=== PATIENT | male | born 1980 | race Caucasian/White ===

== ENCOUNTER 2020-11-10 12:52 | Emergency (ER) | payer OTHER ==
[2020-11-10] MEDS ORDERED: Sodium Chloride 0.9% 1,000 ML IV ONE (14:00)
[2020-11-10] MEDS ORDERED: Ketorolac 30 MG/ML SDV IVPUSH ONE (14:00)
[2020-11-10] MEDS ORDERED: Morphine 4 MG/ML Syringe IVPUSH ONE (14:00)
[2020-11-10] MEDS ORDERED: Ondansetron 4 MG/2 ML SDV IVPUSH ONE (14:00)
--- NOTE | 2020-11-10 14:12 | PCM.EKG ---
#1 Interpretation EKG Date: 11/10/20 Time: 14:07 Rhythm: NSR Rate (Beats/Min): 58 ST-T: Normal
--- NOTE | 2020-11-10 14:24 | EDM.PDOC ---
ED HPI GENERAL MEDICAL PROBLEM - General Chief Complaint: Abdominal Pain Stated Complaint: ABDOMINAL PAIN Time Seen by Provider: 11/10/20 12:57 Source of Information: Reports: Patient History Limitations: Reports: No Limitations - History of Present Illness INITIAL COMMENTS - FREE TEXT/NARRATIVE: HISTORY AND PHYSICAL: History of present illness: Patient is a 40-year-old male who presents emergency room today for right-sided abdominal pain that started this morning and worsened throughout today. Patient states he does have a history of cholecystectomy in April 2020 and states that his gallbladder was so infected they had to go to an open procedure to get his gallbladder removed secondary to infection. Patient states he had this done in [facility]. Patient states that he has not had any complications of the surgery since then. Patient states today he started developing right-sided abdominal pain and states that it feels similar to when he had his gallbladder removed but states that he knows that he does not have his gallbladder. Patient states that he feels "full of air "and is belching frequently which relieves the discomfort for a "split second "and then returns shortly after. Patient denies any other health history or any other associated symptoms. Patient denies fever, chills, chest pain, shortness of breath, or cough. Denies headache, neck stiff ness, change in vision, syncope, or near syncope. Denies nausea, vomiting, diarrhea, constipation, or dysuria. Has not noted any blood in urine or stool. Patient has been eating and drinking appropriately. Review of systems: As per history of present illness and below otherwise all systems reviewed and negative. Past medical history: As per history of present illness and as reviewed below otherwise noncontributory. Surgical history: As per history of present illness and as reviewed below otherwise noncontributory. Social history: See social history for further information Family history: As per history of present illness and as reviewed below otherwise noncontributory. Physical exam: General: Patient is alert, oriented, and in no acute distress. Patient laying on exam table, mildly uncomfortable holding the right side of abdomen. Vitals stable and reviewed by me. HEENT: Atraumatic, normocephalic, pupils equal and reactive bilaterally, negative for conjunctival pallor or scleral icterus, mucous membranes moist, TMs normal bilaterally, throat clear, neck supple, nontender, trachea midline. No drooling or trismus noted. No meningeal signs. No hot potato voice noted. Lungs: Clear to auscultation, breath sounds equal bilaterally, chest nontender. Heart: S1S2, regular rate and rhythm without overt murmur Abdomen: Scarring consistent with surgical history. Otherwise, soft, nondistended, moderate right sided abdominal tenderness with negative rebound and negative Coreas sign. Negative for masses or hepatosplenomegaly. Negative for costovertebral tenderness. Pelvis: Stable nontender. Genitourinary: Deferred. Rectal: Deferred. Skin: Intact, warm, dry. No lesions or rashes noted. Extremities: Atraumatic, negative for cords or calf pain. Neurovascular unremarkable. Neuro: Awake, alert, oriented. Cranial nerves II through XII unremarkable. Cerebellum unremarkable. Motor and sensory unremarkable throughout. Exam nonfocal. Notes: Patient is a 40-year-old male, with a history of prior cholecystectomy 6 months ago otherwise healthy, who presents emergency room today secondary to acute right-sided abdominal pain that started this morning and worsened throughout the day. Will obtain cardiac and abdominal lab work at this time and plan to obtain a an abdominal pelvic CT scan with contrast. See Dr. Link's dictation for specific EKG interpretation. However, sinus bradycardia with a rate of 58 bpm. No STEMI. CBC mild derangements unremarkable. CMP mild derangements unremarkable. Troponin negative. Lipase within normal limits. Urinalysis shows 40 ketones, otherwise clear for infection. Abdominal pelvic CT scan shows possible cholecystitis. Further evaluation of ultrasound recommended. GI tract appendix and remainder of exam are unremarkable. No other findings to explain pain. Mild prostate gland hypertrophy. I did call and speak to the radiologist, Dr. Manuel Solorzano, and thoroughly discussed patient's case. Discussed that patient had had his gallbladder removed in April 2020. He makes an addendum to his note stating there is fluid-filled structure in the gallbladder fossa which could represent a choledochal cyst or contained biloma. Acute inflammation or infection of this lesion is suspected. I did call and speak to the general surgeon on-call, Dr. Allen, and thoroughly discussed patient's case. He recommends discussing with patient's surgeon who performed his surgery. I asked patient who states that his surgery was performed by Dr. Wynn at [facility]. I then called and spoke to general surgeon, Dr. Wynn at [facility] who had performed patient surgery. He recommends placing patient on Augmentin for 7 days and have patient call his office in the morning to establish close follow- up time. Upon reevaluation of patient, he has improved symptoms with medications given today in the ED. Strict return precautions thoroughly discussed with patient. Discussed importance for follow-up with Dr. Wynn. Voices understanding and is agreeable to plan of care. Denies any further questions or concerns at this time. Diagnostics: EKG, CBC, CMP, UA, lipase, troponin, 1 view chest x-ray, abdominal pelvic CT sc an with contrast Therapeutics: Saline, Zofran, Toradol, morphine Prescription: Augmentin Impression: Upper quadrant abdominal pain Plan: 1. Take medication as prescribed. You can alternate ibuprofen and Tylenol as directed for pain and discomfort. 2. Follow-up with Dr. Salomon, general surgery as discussed. Return to the ED as needed and as discussed. Definitive disposition and diagnosis as appropriate pending reevaluation and review of above. Upper Abdomen Pain Score (Numeric/FACES): 6 - Related Data Allergies Allergy/AdvReac Type Severity Reaction Status Date / Time No Known Allergies Allergy Verified 11/10/20 13:37 Home Meds: Home Meds Amoxicillin/Potassium Clav [Augmentin 875-125 Tablet] 1 each PO BID 7 Days #14 tablet 11/10/20 [Rx] Past Medical History - Past Health History Medical/Surgical History: Denies Medical/Surgical History - Infectious Disease History Infectious Disease History: Reports: None - Past Surgical History GI Surgical History: Reports: Cholecystectomy Social & Family History - Tobacco Use Tobacco Use Status *Q: Never Tobacco User Second Hand Smoke Exposure: No - Caffeine Use Caffeine Use: Reports: None - Recreational Drug Use Recreational Drug Use: No ED ROS GENERAL - Review of Systems Review Of Systems: Comprehensive ROS is negative, except as noted in HPI. ED EXAM, GENERAL - Physical Exam Exam: See Below (See dictation) Course - Vital Signs Last Recorded V/S: Last Vital Signs Temp 98 F 11/10/20 13:37 Pulse 63 11/10/20 18:47 Resp 16 11/10/20 18:47 BP 136/83 11/10/20 18:47 Pulse Ox 97 11/10/20 18:47 - Orders/Labs/Meds Orders: Active Orders 24 hr Category Date Time Status EKG Documentation Completion [RC] STAT Care 11/10/20 14:01 Active Labs: Laboratory Tests 11/10/20 11/10/20 11/10/20 Range/Units 13:44 14:09 14:09 WBC 10.44 (4.0-11.0) K/uL RBC 5.03 (4.50-5.90) M/uL Hgb 14.5 (13.0-17.0) g/dL Hct 42.4 (38.0-50.0) % MCV 84.3 (80.0-98.0) fL MCH 28.8 (27.0-32.0) pg MCHC 34.2 (31.0-37.0) g/dL RDW Std Deviation 41.1 (28.0-62.0) fl RDW Coeff of Yolette 14 (11.0-15.0) % Plt Count 317 (150-400) K/uL MPV 10.20 (7.40-12.00) fL Neut % (Auto) 73.4 (48.0-80.0) % Lymph % (Auto) 19.9 (16.0-40.0) % [place] % (Auto) 6.1 (0.0-15.0) % Eos % (Auto) 0.4 (0.0-7.0) % Baso % (Auto) 0.2 (0.0-1.5) % Neut # (Auto) 7.7 H (1.4-5.7) K/uL Lymph # (Auto) 2.1 (0.6-2.4) K/uL [place] # (Auto) 0.6 (0.0-0.8) K/uL Eos # (Auto) 0.0 (0.0-0.7) K/uL Baso # (Auto) 0.0 (0.0-0.1) K/uL Nucleated RBC % 0.0 /100WBC Nucleated RBCs # 0 K/uL Sodium 136 (136-148) mmol/L Potassium 3.8 (3.5-5.1) mmol/L Chloride 101 (98-107) mmol/L Carbon Dioxide 27.5 (21.0-32.0) mmol/L BUN 15 (7.0-18.0) mg/dL Creatinine 0.9 (0.8-1.3) mg/dL Est Cr Clr Drug Dosing 124.31 mL/min Estimated GFR (MDRD) > 60.0 ml/min Glucose 142 H (74-106) mg/dL Calcium 9.3 (8.5-10.1) mg/dL Total Bilirubin 0.7 (0.2-1.0) mg/dL AST 16 (15-37) IU/L ALT 21 (14-63) IU/L Alkaline Phosphatase 67 (46-116) U/L Troponin I (0.000-0.056) ng/mL Total Protein 7.5 (6.4-8.2) g/dL Albumin 3.8 (3.4-5.0) g/dL Globulin 3.7 (2.6-4.0) g/dL Albumin/Globulin Ratio 1.0 (0.9-1.6) Lipase 124 (73-393) U/L Urine Color YELLOW Urine Appearance CLEAR Urine pH 8.5 H (5.0-8.0) Ur Specific [place] 1.020 (1.001-1.035) Urine Protein NEGATIVE (NEGATIVE) mg/dL Urine Glucose (UA) NEGATIVE (NEGATIVE) mg/dL Urine Ketones 40 H (NEGATIVE) mg/dL Urine Occult Blood NEGATIVE (NEGATIVE) Urine Nitrite NEGATIVE (NEGATIVE) Urine Bilirubin NEGATIVE (NEGATIVE) Urine Urobilinogen 1.0 (<2.0) EU/dL Ur Leukocyte Esterase NEGATIVE (NEGATIVE) 11/10/20 Range/Units 14:09 WBC (4.0-11.0) K/uL RBC (4.50-5.90) M/uL Hgb (13.0-17.0) g/dL Hct (38.0-50.0) % MCV (80.0-98.0) fL MCH (27.0-32.0) pg MCHC (31.0-37.0) g/dL RDW Std Deviation (28.0-62.0) fl RDW Coeff of Yolette (11.0-15.0) % Plt Count (150-400) K/uL MPV (7.40-12.00) fL Neut % (Auto) (48.0-80.0) % Lymph % (Auto) (16.0-40.0) % [place] % (Auto) (0.0-15.0) % Eos % (Auto) (0.0-7.0) % Baso % (Auto) (0.0-1.5) % Neut # (Auto) (1.4-5.7) K/uL Lymph # (Auto) (0.6-2.4) K/uL [place] # (Auto) (0.0-0.8) K/uL Eos # (Auto) (0.0-0.7) K/uL Baso # (Auto) (0.0-0.1) K/uL Nucleated RBC % /100WBC Nucleated RBCs # K/uL Sodium (136-148) mmol/L Potassium (3.5-5.1) mmol/L Chloride (98-107) mmol/L Carbon Dioxide (21.0-32.0) mmol/L BUN (7.0-18.0) mg/dL Creatinine (0.8-1.3) mg/dL Est Cr Clr Drug Dosing mL/min Estimated GFR (MDRD) ml/min Glucose (74-106) mg/dL Calcium (8.5-10.1) mg/dL Total Bilirubin (0.2-1.0) mg/dL AST (15-37) IU/L ALT (14-63) IU/L Alkaline Phosphatase (46-116) U/L Troponin I < 0.050 (0.000-0.056) ng/mL Total Protein (6.4-8.2) g/dL Albumin (3.4-5.0) g/dL Globulin (2.6-4.0) g/dL Albumin/Globulin Ratio (0.9-1.6) Lipase (73-393) U/L Urine Color Urine Appearance Urine pH (5.0-8.0) Ur Specific [place] (1.001-1.035) Urine Protein (NEGATIVE) mg/dL Urine Glucose (UA) (NEGATIVE) mg/dL Urine Ketones (NEGATIVE) mg/dL Urine Occult Blood (NEGATIVE) Urine Nitrite (NEGATIVE) Urine Bilirubin (NEGATIVE) Urine Urobilinogen (<2.0) EU/dL Ur Leukocyte Esterase (NEGATIVE) Meds: Medications Discontinued Medications Generic Name Dose Route Start Last Admin Trade Name Freq PRN Reason Stop Dose Admin Sodium Chloride 1,000 mls @ 999 mls/hr 11/10/20 14:00 11/10/20 14:15 Normal Saline IV 11/10/20 15:00 999 mls/hr BOLUS ONE Administration Iopamidol 100 ml 11/10/20 16:01 11/10/20 16:01 Iopamidol 755 Mg/Ml 500 Ml Multipack Bottle IVPUSH 11/10/20 16:02 100 ml ONETIME STA Administration Ketorolac Tromethamine 30 mg 11/10/20 14:00 11/10/20 14:14 Ketorolac 30 Mg/Ml Sdv IVPUSH 11/10/20 14:01 30 mg ONETIME ONE Administration Morphine Sulfate 4 mg 11/10/20 14:00 11/10/20 14:14 Morphine 4 Mg/Ml Syringe IVPUSH 11/10/20 14:01 4 mg ONETIME ONE Administration Ondansetron HCl 4 mg 11/10/20 14:00 11/10/20 14:15 Ondansetron 4 Mg/2 Ml Sdv IVPUSH 11/10/20 14:01 4 mg ONETIME ONE Administration Departure - Departure Time of Disposition: 18:39 Disposition: Home, Self-Care 01 Clinical Impression: Abdominal pain Qualifiers: Abdominal location: right upper quadrant Qualified Code(s): R10.11 - Right upper quadrant pain - Discharge Information Prescriptions: Amoxicillin/Potassium Clav [Augmentin 875-125 Tablet] 1 each PO BID 7 Days #14 tablet Instructions: Abdominal Pain, Adult Referrals: PCP,Not In Area [Primary Care Provider] - Forms: ED Department Discharge Additional Instructions: The following information is given to patients seen in the emergency department who are being discharged to home. This information is to outline your options for follow-up care. We provide all patients seen in our emergency department with a follow-up referral. The need for follow-up, as well as the timing and circumstances, are variable depending upon the specifics of your emergency department visit. If you don't have a primary care physician on staff, we will provide you with a referral. We always advise you to contact your personal physician following an emergency department visit to inform them of the circumstance of the visit and for follow-up with them and/or the need for any referrals to a consulting specialist. The emergency department will also refer you to a specialist when appropriate. This referral assures that you have the opportunity for follow-up care with a specialist. All of these measure are taken in an effort to provide you with optimal care, which includes your follow-up. Under all circumstances we always encourage you to contact your private physician who remains a resource for coordinating your care. When calling for follow-up care, please make the office aware that this follow-up is from your recent emergency room visit. If for any reason you are refused follow-up, please contact the Emergency Department at and asked to speak to the emergency department charge nurse. Primary Care [address] [place] [address] [facility] [address] [place] [id number] Octavio Salomon MD [facility] [address] [place] [address] 1. Take medication as prescribed. You can alternate ibuprofen and Tylenol as directed for pain and discomfort. 2. Follow-up with Dr. Salomon, general surgery as discussed. Return to the ED as needed and as discussed. Sepsis Event Note (ED) - Evaluation Sepsis Screening Result: No Definite Risk - Focused Exam Vital Signs: Vital Signs Temp Pulse Resp BP Pulse Ox 11/10/20 18:47 63 16 136/83 97 11/10/20 16:15 66 16 99 11/10/20 15:43 67 16 160/90 H 95 11/10/20 14:43 63 16 146/84 H 99 11/10/20 13:37 98 F 62 16 158/85 H 100 - My Orders Last 24 Hours: My Active Orders 11/10/20 14:01 EKG Documentation Completion [RC] STAT - Assessment/Plan Last 24 Hours: My Active Orders 11/10/20 14:01 EKG Documentation Completion [RC] STAT
[2020-11-10 14:57] LABS: CARBON DIOXIDE,CO2 27.5 mmol/L (21.0-32.0); CHLORIDE,CL 101 mmol/L (98-107); GLUCOSE RANDOM 142 mg/dL (74-106); POTASSIUM,K 3.8 mmol/L (3.5-5.1); SODIUM,NA 136 mmol/L (136-148)
[2020-11-10 15:16] LABS: BLOOD UREA NITROGEN,BUN 15 mg/dL (7.0-18.0); LIPASE 124 U/L (73-393)
--- NOTE | 2020-11-10 15:24 | CR ---
Indication: Epigastric abdominal pain Technique: Chest 1 view Comparison: None Findings/Impression: Cardiovascular and mediastinum: Heart size and vasculature are normal in caliber and appearance. Mediastinum is within normal limits. Lungs and pleural space: Lungs are clear. No sign of infiltrate or mass. No sign of pleural effusion. No pneumothorax. Bones and soft tissues: No significant findings. Dictated by Anne Craig MD @ 11/10/2020 3:21:[address] Anne Craig @ Nov 10 2020 3:21PM
[2020-11-10] MEDS ORDERED: Iopamidol 755 MG/ML 500 ML Multipack Bottle IVPUSH STA (16:01)
--- NOTE | 2020-11-10 16:45 | CT ---
INDICATION: Right-sided abdomen pain. TECHNIQUE: CT abdomen and pelvis acquired with 100 cc Isovue 370 IV contrast. COMPARISON: None. FINDINGS: Lower chest: Unremarkable. Liver: Unremarkable. Normal in size and attenuation. No suspicious masses. Gallbladder and bile ducts: Gallbladder wall appears hazy and may be inflamed. Gallbladder is normal in caliber. No distinct stone. Biliary tree is normal. Pancreas: Unremarkable. No mass or inflammation. Spleen: Unremarkable. Normal in size. No masses. Adrenal glands: Unremarkable. No nodules. Kidneys: Unremarkable. No suspicious masses, stones, or hydronephrosis. GI tract: Unremarkable. Normal in caliber. No sign of mass or inflammation. Normal appendix. Vasculature: Unremarkable. Mesenteric arteries are patent. Lymph nodes: No lymphadenopathy. Omentum/Peritoneum/Abdominal Wall: Unremarkable. No sign of mass or infiltration. No free air or significant free fluid. Pelvis: Mild prostatomegaly Bones: Unremarkable for age. IMPRESSION: 1. Possible cholecystitis. Further evaluation with ultrasound is recommended as a potential source of the patient`s right-sided pain. 2. GI tract, appendix, remainder of the exam are unremarkable. No other findings to explain pain. 3. Mild prostate gland hypertrophy. Please note that all CT scans at this facility use dose modulation, iterative reconstruction, and/or weight-based dosing when appropriate to reduce radiation dose to as low as reasonably achievable. Dictated by Elton Solorzano MD @ 11/10/2020 4:44:[address] Elton Solorzano @ Nov 10 2020 4:44PM
== END 2020-11-10 18:48 | disposition home or self-care (01) ==
LOC: EDBD 12:52 → MW.ED 12:52
DX: R10.11 Right upper quadrant pain (principal); Z90.49 Acquired absence of other specified parts of digestive tract
CPT/HCPCS: 71045; 74177; 80053; 81003; 83690; 84484; 85025; 93005; 96374; 96375; 99284; J1885; J2270; J2405; J7030; Q9967